=== PATIENT | male | born 1955 | race African-American/Black ===

== ENCOUNTER 2018-06-08 11:21 | Inpatient (IN) ==
--- NOTE | 2018-06-08 10:01 | MH ---
cc: Herbie Genao MD,Adis Belle MD DATE OF ADMISSION: 06/08/2018 CHIEF COMPLAINT: Adenocarcinoma of sigmoid colon. HISTORY OF PRESENT ILLNESS: This patient originally had a colonoscopy by Dr. Clemente on 09/12/2017. At that time, there were 2 polyps from 12-25 mm in size in the sigmoid colon. Both polyps were removed with snare polypectomy and the biopsy was returned approximately [address] Clemente showing adenocarcinoma. The pathology report states that it was a 1.5 cm specimen, and Dr. Clemente requested lymphovascular tumor invasion study as well as endothelial stains, CD31 and CD34, and no lymphovascular invasion was found in the area of invasive adenocarcinoma. The patient was referred to General Surgery, specifically Dr. Bruce Coats, and was recommended to have a sigmoid colectomy. The patient underwent CT scanning of the abdomen, pelvis and chest on 09/29/2017, which was basically unremarkable except for some pulmonary nodules and therefore he underwent a PET CT scan on 10/03/2017 that was unremarkable. Approximately 2-1/2 months later, on 11/24/2017, the patient was seen by me for a second opinion, and I spoke with Dr. Clemente on the phone, who felt that the lesion was definitely in the lower sigmoid colon. At the time of my examination, it was 2 months since the lesion was removed, and I decided to repeat his colonoscopy to make sure that I got a good look at his rectosigmoid region to see if there was any residual polyp present. At that time, his CEA on 09/23/2017 was normal at 1.6. A colonoscopy was completed by me on 12/01/2017 and at that time, I felt that I saw a small 2 mm scar at 19-20 cm from the anal verge in the lower sigmoid region. That scar was tattooed and biopsied and only showed focal glandular hyperplasia with no adenomatous glands and no dysplasia or malignancy. For this reason, we decided together to watch and wait on this lesion and follow him. The lesion was felt to be fully removed at the time of the colonoscopy and also the second colonoscopy that I did show no lesions and it was a much better prep and Dr. Clemente's colonoscopy. I saw the patient back approximately 3 months after his colonoscopy on 03/02/2018 and at that time, a flexible sigmoidoscopy was done. The prep at that time was not good. I could see the area of the tattoo that I left back in 11/2017, but I could not see any recurrence at this area. We then obtained a CEA on him and it came back elevated on 03/02/2018 at 15.2. This was repeated on 03/23/2018, mildly decreased to 13.2, but was concerning. I saw the patient in the office once again and went over all of these results with him and told him my concerns of residual or metastatic or even recurrent carcinoma. He underwent a repeat PET CT scan on 04/04/2018 showing no definite uptake in the bowel or the chest or anywhere, such as a liver or retroperitoneal node chains. Because of this, I had a discussion with the patient and he underwent flexible sigmoidoscopy examination after prep and under sedation and right at my tattooed area, at about 20 cm from the anal verge, was a small 8 mm pedunculated polypoid lesion. This lesion was biopsied and it showed colonic mucosa with detached glands with high-grade dysplasia, could not exclude underlying adenocarcinoma. Because of this, on 05/04/2018, I talked to the patient once again about surgery, and he consented to surgery. I recommended a full sigmoid colectomy with a colorectal anastomosis with a full mesenteric excision, indicating that the anastomosis would be in the mid to upper rectum. I explained all od the risks, benefits, and alternatives to the patient and felt that it was in his best interest to have a colectomy. PAST MEDICAL HISTORY: Otherwise negative. FAMILY HISTORY: Otherwise negative. SOCIAL HISTORY: Otherwise negative. REVIEW OF SYSTEMS: Otherwise negative. MEDICATIONS: Amlodipine 10 mg p.o. daily. PHYSICAL EXAMINATION: GENERAL: Well-developed, well-nourished male, in no acute distress. SKIN: Warm and dry. HEENT: Extraocular muscles intact. NECK: Supple. CHEST: Clear. HEART: S1, S2 is heard. No murmurs or gallops. ABDOMEN: Soft, nontender. No masses. RECTAL: Normal. EXTREMITIES: Range of motion within normal limits. NEUROLOGIC: Grossly normal. IMPRESSION AND RECOMMENDATIONS: Probable adenocarcinoma at a polypectomy site in the low sigmoid at about 19-20 cm, requiring a sigmoid colectomy with a low anterior resection with anastomosis in the mid to upper rectum. Again, all of the risks, benefits and alternatives were explained to the patient and we will proceed with surgery. MD MICHAEL Franco/LIZETTE , 09:38 AM , 10:00 AM
[2018-06-08] MEDS ORDERED: Neostigmine Inj 5 MG/5 ML Syringe IV.PUSH ONE (12:00)
[2018-06-08] MEDS ORDERED: Esmolol Bolus Inj 100 MG/10 ML Vial IV.PUSH ONE (12:00)
[2018-06-08] MEDS ORDERED: Glycopyrrolate Inj 1 MG/5 ML Syringe IV.PUSH ONE (12:00)
[2018-06-08] MEDS ORDERED: Phenylephrine/NS 1000 MCG/10ML Syringe IV.PUSH ONE (12:00)
[2018-06-08] MEDS ORDERED: Lidocaine PF 1% Inj 5 ML Syringe INFILTRATN ONE (12:00)
[2018-06-08] MEDS ORDERED: Chlorhexidine Gluconate 2% 1 Pack (2 Cloths) TOPICAL SCH (12:30)
[2018-06-08] MEDS ORDERED: Metoprolol Tartrate 25 MG Tablet PO SCH (12:30)
[2018-06-08] MEDS ORDERED: Dextrose 5%/NaCl 0.9% Inj 1,000 ML IV.SIG SCH (12:45)
[2018-06-08] MEDS ORDERED: Sodium Chlor 0.9% Inj 500 ML IV.SIG SCH (13:00)
[2018-06-08] MEDS ORDERED: Potassium Chlor 20 mEq Premix 20 MEQ/100 ML PIGGYBACK IV.SIG PRN ×2 (15:40→15:43)
[2018-06-08] MEDS ORDERED: Potassium Chlor 40 mEq Premix 40 MEQ/100 ML PIGGYBACK IV.SIG PRN ×2 (15:40→15:43)
[2018-06-08] MEDS ORDERED: Acetaminophen 325 MG Tablet PO PRN (15:46)
[2018-06-08] MEDS ORDERED: Zolpidem Tartrate 5 MG Tablet PO PRN (15:46)
[2018-06-08] MEDS ORDERED: *morphine SULFATE 10 MG/ML PERIprocedure ONLY ONE ×2 (15:59→16:37)
[2018-06-08] MEDS ORDERED: fentaNYL Citrate Inj 100 MCG/2 ML Ampul ONE ×2 (16:01→16:37)
[2018-06-08] MEDS ORDERED: Morphine Inj 30 MG/30 ML PCA.VIAL PCA ONE (16:24)
[2018-06-08] MEDS ORDERED: Naloxone Inj 0.4 MG/ML Vial IV.PUSH PRN (17:14)
[2018-06-08 17:25] LABS: Baso % (Auto) 0.1 % (0.0-2.0); Hemoglobin 14.2 gm/dL (13.0-17.0); Lymph # (Auto) 0.9 th/mm3 (1.0-4.8); Lymph % (Auto) 6.5 % (9.0-44.0); Mean Corpuscular HGB Conc 31.6 % (32.0-36.0); Mean Corpuscular Hemoglobin 25.9 pg (27.0-34.0); Mean Corpuscular Volume 81.7 fL (80.0-100.0); Mean Platelet Volume 7.8 fL (7.0-11.0); Mono # (Auto) 0.3 th/mm3 (0.0-0.9); Mono % (Auto) 2.1 % (0.0-8.0); Neut # (Auto) 13.3 th/mm3 (1.8-7.7); Neut % (Auto) 91.3 % (16.0-70.0); Platelet Count 204 th/mm3 (150-450); Red Blood Count 5.51 mil/mm3 (4.50-5.90); Red Cell Distribution Width 15.5 % (11.6-17.2); White Blood Count 14.5 th/mm3 (4.0-11.0)
[2018-06-08 17:42] LABS: Carbon Dioxide 23.7 meq/L (21.0-32.0); Potassium 3.6 meq/L (3.5-5.1)
[2018-06-08] MEDS: ceFAZolin 2 GM Premix Inj 2 GM/50 ML PIGGYBACK IV.SIG SCH (18:05)
--- NOTE | 2018-06-08 19:51 | MP ---
cc: Herbie Genao MD,Adis Belle MD DATE OF OPERATION: 06/08/2018 PREOPERATIVE DIAGNOSIS: Adenocarcinoma of the sigmoid colon. POSTOPERATIVE DIAGNOSIS: Adenocarcinoma of the sigmoid colon. PROCEDURE PERFORMED: Sigmoid colectomy, low anterior resection. ANESTHESIA: General endotracheal. SURGEON: Herbie Genao MD MANAGER OF MARKETING: Elmer Briones MD ESTIMATED BLOOD LOSS: 200 mL OPERATING TIME: One hour and 30 minutes. OPERATIVE FINDINGS: This patient originally had a colonoscopy done by Chyna on 09/12/2017. At that time, there were 2 polyps seen, 12-25 mm in size in the sigmoid colon. Both polyps were removed with snare polypectomy and biopsy was returned approximately 10 days later showing adenocarcinoma. The pathology report stated that it was a 1.5 cm specimen and lymphovascular tumor invasion study was done, as well as endothelial stains and no lymphovascular invasion was found in the area of invasive adenocarcinoma. The patient was referred to General Surgery initially, but wished a second opinion. The patient underwent CT scanning of the abdomen, the pelvis and the chest on 09/29/2017, which was basically unremarkable except for some pulmonary nodules and, therefore, he underwent a PET/CT scan on 10/03/2017 that was also unremarkable. Approximately 2-1/2 months later, on 11/24/2017, the patient was seen by me for a second opinion. I spoke with Dr. Clemente on the phone, who felt that the lesion was definitely in the lower sigmoid colon. At the time of my examination, it was 2 months since the lesion was removed and I decided to repeat his colonoscopy to make sure that I got a good look at the area to see if there was any residual polyp or carcinoma present. That colonoscopy was done on 12/01/2017 and, at that time, I saw a 2 mm scar at 19-20 cm from the anal verge, in the lower sigmoid colon, that I tattooed and biopsied, showing only focal glandular hyperplasia with no adenomatous glands, dysplasia or malignancy. A CEA level done on 09/23/2017 was normal at 1.6. For this reason, we decided together to watch and wait on this lesion and follow him, as we had no evidence of exactly where the lesion definitely was, although it was felt to be in that lower sigmoid where I saw the 2 mm scar. I followed the patient and on 03/02, approximately 3 months later, I saw the patient again in the office and did a flexible sigmoidoscopy showing only the tattoo, although the prep was not good at the time. I obtained another CEA on him at that time, approximately 6 months after he was originally diagnosed and the CEA on 03/02/2018 was elevated to 15.2. It was repeated about 2 weeks later and was 13.2. Because of this, I saw the patient in the office once again and recommended a complete metastatic workup, as well as a repeat sigmoidoscopy only under sedation with prep. The PET/CT scan was done on 04/04/2018, showing no definite uptake in the bowel or the chest or anywhere, such as liver or retroperitoneal node change. Because of this, the sigmoidoscopy examination was done and at about 20 cm from the anal verge at the area of the tattoo, there was a small 8 mm pedunculated polypoid lesion that was firm and was biopsied. It showed high-grade dysplasia and underlying carcinoma could not be excluded. Because of this, on 05/04/2018, I talked to the patient once again about having surgery and he consented to the surgery. I recommended a sigmoid colectomy with a colorectal anastomosis. At surgery, exploration of the abdominal cavity revealed that the liver was palpably normal, as was the gallbladder, the remainder of the small bowel and stomach as well as the remainder of the colon. The tattoo was seen at about 20 cm, just about 5 cm above the upper rectum and there was a nodular area present there in the bowel wall. It was not penetrating the colon. Of note, near the area of the inferior mesenteric artery origin, there was a small serosal lesion approximately 3 mm in diameter. It was mildly firm and it was excised and sent for permanent biopsy to determine if it was a peritoneal metastasis. Also, just distal to the inferior mesenteric artery origin was a 2 cm enlarged, firm lymph node that was suspicious for metastatic lymphadenopathy. This is the only palpable lymph node. The only other possibly abnormal area is deep in his cul-de-sac, well below his lesion in his sigmoid colon. He had cul-de-sac serosa on the left and the right that appeared mildly nodular, although not firm like metastatic adenocarcinoma, but it was irregular and almost frond-like and, therefore, was excised. Deep in the cul-de-sac was another small area and this area was fulgurated. A sigmoid colectomy was done with a colorectal anastomosis to the upper portion of the rectum. OPERATIVE TECHNIQUE: The patient was placed on the table in the supine position. After adequate general endotracheal anesthesia, the legs were placed in the perineal lithotomy position and the abdomen and perineum were prepped and draped in usual manner. Transverse infraumbilical skin incision was made and carried down through subcutaneous tissue and the rectus muscles and the peritoneal cavity was entered with the above-mentioned findings. Our attention was turned to the sigmoid colon. It was mobilized along its peritoneal reflection and the descending colon was likewise mobilized up to, but not including, the splenic flexure. The left ureter and testicular vessels were identified and protected at all times. Next, our attention was turned to the inferior mesenteric artery and it was doubly clamped, cut and doubly ligated with 0 Vicryl ligature. Near that area was a 3 mm flat area on the serosa of the mesentery that was excised and sent for permanent section as described above. The retrorectal space was entered and the dissection was taken down posteriorly and laterally to protect his nerves at all times. The lateral pelvic peritoneum was incised bilaterally and the dissection was continued down posteriorly. Deep in the cul-de-sac, well below the area of the resection was this irregularity of his cul-de-sac mucosa on the left and the right, which was removed and sent for permanent section biopsy. Deep in the cul-de-sac were several other frond-like areas that were soft, but also somewhat irregular and these were fulgurated. No other suspicious areas were seen and no definite metastatic disease was found. Just below the inferior mesenteric artery division was the large firm lymph node, also described above and this is sent with the specimen. Once the rectum was mobilized, point in the upper rectum, just below the rectosigmoid junction was chosen for division and the upper portion of the mesorectum was divided with electrocautery and was clamped, cut and ligated as well and the upper rectum was cleared of fat and mesorectum. Pursestring stapling device was used and the rectum was divided. Next, our attention was turned to the sigmoid colon above and a point for division was chosen and the mesentery of the sigmoid colon was clamped, cut and ligated and the sigmoid colon was cleared. A pursestring stapling device was used and the bowel was divided. The anvil of the Ethicon 33 EEA was placed in the proximal bowel and the pursestring was tied. Dr. Briones then went below and placed the EEA instrument transanally and the distal pursestring was tied and the instrument was connected, closed and fired, creating the anastomosis. The anastomosis was under no tension. The blood supply was excellent. Dr. Briones then did proctosigmoidoscopy examination, insufflating air into the rectum with saline solution in the pelvis and no air leaks were identified. The pelvis was irrigated thoroughly with 2 liters of saline solution, aspirated dry and hemostasis was maintained throughout with electrocautery and ligature. Once we ensured adequate hemostasis, the bowels were replaced in the abdominal cavity in an driver guide manner and the omentum and the transverse colon was laid over the small bowel. The abdominal cavity was then closed in layers using a double-stranded #1 PDS for the posterior rectus sheath and then the muscle and subcutaneous layer were irrigated thoroughly with saline solution using a liter and then the anterior rectus sheath was closed with a double stranded #1 PDS as well. Subcutaneous tissue was irrigated with a liter of saline solution and then the skin was closed with running 3-0 Vicryl subcuticular suture and a dressing was applied. Sponge, needle and instrument counts were reported as correct. The estimated blood loss was 200 mL. Operating time was 1 hour and 30 minutes. The patient tolerated the procedure well and left the operating room in good condition. MD MICHAEL Franco/SHANEL , 06:47 PM , 07:49 PM
[2018-06-08] MEDS: KCL 20 mEq/D5W/LR Inj 1,000 ML IV.CONT SCH (21:21)
[2018-06-09] MEDS: ceFAZolin 2 GM Premix Inj 2 GM/50 ML PIGGYBACK IV.SIG SCH ×2 (04:00→11:34)
[2018-06-09 05:29] LABS: Baso % (Auto) 0.1 % (0.0-2.0); Hematocrit 41.6 % (39.0-51.0); Hemoglobin 13.6 gm/dL (13.0-17.0); Lymph # (Auto) 1.1 th/mm3 (1.0-4.8); Lymph % (Auto) 8.7 % (9.0-44.0); Mean Corpuscular HGB Conc 32.7 % (32.0-36.0); Mean Corpuscular Hemoglobin 26.2 pg (27.0-34.0); Mean Corpuscular Volume 80.1 fL (80.0-100.0); Neut # (Auto) 10.7 th/mm3 (1.8-7.7); Neut % (Auto) 83.2 % (16.0-70.0); Platelet Count 201 th/mm3 (150-450); Red Blood Count 5.19 mil/mm3 (4.50-5.90); Red Cell Distribution Width 15.1 % (11.6-17.2); White Blood Count 12.9 th/mm3 (4.0-11.0)
[2018-06-09 05:42] LABS: Calcium 8.2 mg/dL (8.5-10.1); Carbon Dioxide 25.9 meq/L (21.0-32.0); Potassium 3.8 meq/L (3.5-5.1)
[2018-06-09] MEDS: Morphine Inj 30 MG/30 ML PCA.VIAL PCA PRN (08:55)
[2018-06-09] MEDS: amLODIPine 10 MG Tablet PO SCH (09:01)
[2018-06-09] MEDS: Pantoprazole Inj 40 MG Vial IV.PUSH SCH (09:01)
--- NOTE | 2018-06-09 16:26 | P.PNCS ---
Subjective Interval history: No N or V. No BMs. Tolerating CLD Objective Vital Signs/Intake & Output: Vital Signs 06/08/18 16:30 06/08/18 16:45 06/08/18 17:00 Temperature Pulse Rate 74 72 74 Respiratory Rate 16 16 16 Blood Pressure 152/82 H 149/83 H 143/79 H Pulse Oximetry 99 98 98 06/08/18 17:30 06/08/18 20:00 06/09/18 00:00 Temperature 98.1 F 98.5 F Pulse Rate 78 86 88 Respiratory Rate 16 16 16 Blood Pressure 146/79 H 162/98 H 150/95 H Pulse Oximetry 98 97 97 06/09/18 04:00 06/09/18 05:30 06/09/18 07:00 Temperature 98.5 F 98.5 F Pulse Rate 86 86 78 Respiratory Rate 16 16 Blood Pressure 148/91 H 148/91 H Pulse Oximetry 96 96 06/09/18 08:00 06/09/18 09:00 06/09/18 09:55 Temperature 99.4 F Pulse Rate 74 80 Respiratory Rate 18 Blood Pressure 149/86 H Pulse Oximetry 95 06/09/18 10:00 06/09/18 11:00 06/09/18 12:00 Temperature 98.6 F Pulse Rate 68 65 74 Respiratory Rate 20 Blood Pressure 142/97 H Pulse Oximetry 97 06/09/18 13:00 06/09/18 14:00 06/09/18 15:00 Temperature Pulse Rate 72 78 81 Respiratory Rate Blood Pressure Pulse Oximetry Intake & Output 06/08/18 06/09/18 06/09/18 18:59 06:59 18:59 Intake Total 50 / 50 100 / 100 540 / 540 Output Total 620 / 620 100 / 100 2950 / 2950 Balance -570 / -570 0 / 0 -2410 / -2410 Weight 96.7 kg 96.6 kg Intake: IV 50 / 50 100 / 100 300 / 300 Ancef 2 GM Premix Inj 2 gm In 50 / 50 100 / 100 50 ml @ 100 mls/hr IV.SIG Q8H KARI Rx#:[id number] Flagyl 500 MG Inj 100 ML @ 200 100 / 100 200 / 200 mls/hr IV.SIG Q8H KARI Rx#: [id number] Oral 0 / 0 240 / 240 Output: Urine 350 / 350 Estimated Blood Loss 200 / 200 Urine Amount (Catheter) 50 / 50 2950 / 2950 Indwelling Urethral Catheter 50 / 50 2950 / 2950 Wound Drainage 70 / 70 50 / 50 Right Lower Abdomen 70 / 70 50 / 50 Other: Weight On Admission 96.7 kg Result Diagrams: 06/09/18 04:27 06/09/18 04:27 Laboratory Results: Laboratory Results - last 24 hr 06/08/18 06/08/18 06/09/18 16:45 16:45 04:27 WBC 14.5 H 12.9 H RBC 5.51 5.19 Hgb 14.2 13.6 Hct 45.0 41.6 MCV 81.7 80.1 MCH 25.9 L 26.2 L MCHC 31.6 L 32.7 RDW 15.5 15.1 Plt Count 204 201 MPV 7.8 8.0 Neut % (Auto) 91.3 H 83.2 H Lymph % (Auto) 6.5 L 8.7 L [place] % (Auto) 2.1 8.0 Eos % (Auto) 0.0 0.0 Baso % (Auto) 0.1 0.1 Neut # (Auto) 13.3 H 10.7 H Lymph # (Auto) 0.9 L 1.1 [place] # (Auto) 0.3 1.0 H Eos # (Auto) 0.0 0.0 Baso # (Auto) 0.0 0.0 WBC Differential . . Differential Comment Auto diff final Auto diff final Sodium 142 Potassium 3.6 Chloride 108 H Carbon Dioxide 23.7 Anion Gap 10 BUN 12 Creatinine 1.23 Estimated GFR 73 L Random Glucose 168 H Calcium 8.0 L 06/09/18 04:27 WBC RBC Hgb Hct MCV MCH MCHC RDW Plt Count MPV Neut % (Auto) Lymph % (Auto) [place] % (Auto) Eos % (Auto) Baso % (Auto) Neut # (Auto) Lymph # (Auto) [place] # (Auto) Eos # (Auto) Baso # (Auto) WBC Differential Differential Comment Sodium 141 Potassium 3.8 Chloride 106 Carbon Dioxide 25.9 Anion Gap 9 BUN 9 Creatinine 1.28 Estimated GFR 69 L Random Glucose 130 H Calcium 8.2 L Medications: Active Medications Acetaminophen (Tylenol) 650 mg PO Q4H PRN PRN Reason: FEVER > 101 F Hydrocodone Bitart/Acetaminophen ([place] 5/325) 2 tab PO Q4H PRN PRN Reason: PAIN SCALE 5 TO 10 Hydrocodone Bitart/Acetaminophen ([place] 5/325) 1 tab PO Q4H PRN PRN Reason: PAIN SCALE 1 TO 4 Last Admin: 06/09/18 03:59 Dose: 1 tab Alvimopan (Entereg) 12 mg PO [employer] [facility] Stop: 06/12/18 12:59 Last Admin: 06/09/18 09:01 Dose: 12 mg Alvimopan (Entereg) 12 mg PO BID [facility]I Stop: 06/15/18 21:01 Last Admin: 06/09/18 09:00 Dose: 12 mg Amlodipine Besylate (Norvasc) 10 mg PO DAILY [facility] Last Admin: 06/09/18 09:01 Dose: 10 mg Benzocaine/Menthol (Chloraseptic Sore Throat Lozenge) 1 lozenge BUCCAL PRN PRN PRN Reason: SORE THROAT Chlorhexidine Gluconate (Chlorhexidine 2% Cloth) 3 pack TOPICAL [employer] [facility] Stop: 06/11/18 12:30 Enalaprilat (Vasotec Inj) 1.25 mg IV.PUSH Q4H PRN PRN Reason: SBP > 160 mmHg Furosemide (Lasix Inj) 20 mg IV.PUSH Q12HR [facility] Last Admin: 06/09/18 09:00 Dose: 20 mg Lactated Ringer's (Lr 1000 Ml Inj) 1,000 mls @ 30 mls/hr IV.SIG .Q24H [facility] Stop: 06/11/18 12:30 Last Admin: 06/09/18 14:33 Dose: Not Given Sodium Chloride (Ns Inj) 500 mls @ 30 mls/hr IV.SIG .Q10H [facility] Stop: 06/11/18 12:30 Cefazolin Sodium 1,000 mg/ (Sodium Chloride) 100 mls @ 200 mls/hr IV.SIG [employer] [facility] Stop: 06/11/18 12:59 Metronidazole/Sodium Chloride (Flagyl 500 Mg Inj) 100 mls @ 0 mls/hr IV.SIG [employer] [facility] Stop: 06/12/18 12:59 Dextrose/Sodium Chloride (D5w/Normal Saline Inj) 1,000 mls @ 125 mls/hr IV.SIG .Q8H [facility] Last Admin: 06/09/18 11:02 Dose: Not Given Potassium Cl/Dextrose/Lact Ringer's (D5w/Lr + Kcl 20 Meq Inj) 1,000 mls @ 0 mls /hr IV.CONT .Q0M [facility]; Protocol Last Admin: 06/08/18 21:21 Dose: 200 mls/hr Potassium Chloride (Kcl 20 Meq Premix Inj) 20 meq in 100 mls @ 50 mls/hr IV.SIG UNSCH PRN PRN Reason: for K+ level 3.0-3.5 Potassium Chloride (Kcl 40 Meq Premix Inj) 40 meq in 100 mls @ 25 mls/hr IV.SIG UNSCH PRN PRN Reason: for K= level < 3.0 Potassium Chloride (Kcl 40 Meq Premix Inj) 40 meq in 100 mls @ 25 mls/hr IV.SIG UNSCH PRN PRN Reason: for K= level < 3.0 Potassium Chloride (Kcl 20 Meq Premix Inj) 20 meq in 100 mls @ 50 mls/hr IV.SIG UNSCH PRN PRN Reason: for K+ level 3.0-3.5 Morphine Sulfate (Morphine Inj) 30 mg in 30 mls @ 0 mls/hr [employer] UNSCH PRN PRN Reason: per [employer] parameters Last Admin: 06/09/18 08:55 Dose: 0 mls/hr Ketorolac Tromethamine (Toradol Inj) 15 mg IV.PUSH Q6H PRN PRN Reason: BREAKTHROUGH PAIN Stop: 06/11/18 15:45 Metoclopramide HCl (Reglan Inj) 10 mg IV.PUSH Q6HR [facility]; Protocol Last Admin: 06/09/18 11:34 Dose: 10 mg Metoprolol Tartrate (Lopressor) 25 mg PO [employer] [facility] Stop: 06/11/18 12:30 Naloxone HCl (Narcan Inj) 0.4 mg IV.PUSH PRN PRN PRN Reason: Resp rate < 10 Pantoprazole Sodium (Protonix Inj) 40 mg IV.PUSH DAILY [facility] Last Admin: 06/09/18 09:01 Dose: 40 mg Povidone Iodine (Betadine 5% Antisepsis Kit) 1 applicatio EACH NARE [employer] [facility] Stop: 06/11/18 12:30 Sodium Chloride (Ns Flush) 2 ml IV.FLUSH BID [facility] Last Admin: 06/09/18 10:59 Dose: Not Given Sodium Chloride (Ns Flush) 2 ml IV.FLUSH BID [facility]I Last Admin: 06/09/18 09:00 Dose: 2 ml Sodium Chloride (Ns Flush) 2 ml IV.FLUSH PRN PRN PRN Reason: FLUSH AFTER USING IV ACCESS Sodium Chloride (Ns Flush) 2 ml IV.FLUSH PRN PRN PRN Reason: FLUSH AFTER USING IV ACCESS Zolpidem Tartrate (Ambien) 5 mg PO HS PRN PRN Reason: INSOMNIA Objective Remarks: VS-S Abd: soft,dressing dry Assessment and Plan - Plan Stable POD#1. Transfer to [address] [place] [address]
[2018-06-09] MEDS: KCL 20 mEq/D5W/LR Inj 1,000 ML IV.CONT SCH (21:21)
[2018-06-10] MEDS: KCL 20 mEq/D5W/LR Inj 1,000 ML IV.CONT SCH ×2 (03:56→09:30)
[2018-06-10] MEDS: Morphine Inj 30 MG/30 ML PCA.VIAL PCA PRN ×2 (04:57→19:40)
[2018-06-10 06:05] LABS: Baso % (Auto) 0.3 % (0.0-2.0); Eos # (Auto) 0.1 th/mm3 (0.0-0.4); Eos % (Auto) 0.5 % (0.0-4.0); Hematocrit 41.7 % (39.0-51.0); Hemoglobin 13.5 gm/dL (13.0-17.0); Lymph # (Auto) 1.4 th/mm3 (1.0-4.8); Lymph % (Auto) 13.5 % (9.0-44.0); Mean Corpuscular HGB Conc 32.5 % (32.0-36.0); Mean Corpuscular Hemoglobin 26.4 pg (27.0-34.0); Mean Corpuscular Volume 81.3 fL (80.0-100.0); Mean Platelet Volume 8.2 fL (7.0-11.0); Mono # (Auto) 1.1 th/mm3 (0.0-0.9); Mono % (Auto) 10.7 % (0.0-8.0); Neut # (Auto) 7.6 th/mm3 (1.8-7.7); Platelet Count 197 th/mm3 (150-450); Red Blood Count 5.13 mil/mm3 (4.50-5.90); Red Cell Distribution Width 15.4 % (11.6-17.2); White Blood Count 10.1 th/mm3 (4.0-11.0)
[2018-06-10 07:26] LABS: Calcium 8.2 mg/dL (8.5-10.1); Carbon Dioxide 25.5 meq/L (21.0-32.0); Potassium 4.2 meq/L (3.5-5.1)
[2018-06-10] MEDS: amLODIPine 10 MG Tablet PO SCH (09:44)
[2018-06-10] MEDS: Pantoprazole Inj 40 MG Vial IV.PUSH SCH (09:45)
[2018-06-10] MEDS: Ketorolac Inj 30 MG/ML (IVP) Vial IV.PUSH PRN ×2 (09:45→23:28)
--- NOTE | 2018-06-10 10:44 | P.PNCS ---
Subjective Interval history: No N or V. No BMs Objective Vital Signs/Intake & Output: Vital Signs 06/09/18 11:00 06/09/18 12:00 06/09/18 13:00 Temperature 98.6 F Pulse Rate 65 74 72 Respiratory Rate 20 Blood Pressure 142/97 H Pulse Oximetry 97 06/09/18 14:00 06/09/18 15:00 06/09/18 16:00 Temperature Pulse Rate 78 81 82 Respiratory Rate Blood Pressure Pulse Oximetry 06/09/18 16:24 06/09/18 17:00 06/09/18 18:00 Temperature 98.8 F Pulse Rate 84 72 74 Respiratory Rate 18 Blood Pressure 136/91 H Pulse Oximetry 94 L 06/09/18 19:00 06/09/18 20:00 06/09/18 21:00 Temperature 101.3 F H 99.8 F H Pulse Rate 77 90 92 H Respiratory Rate 16 Blood Pressure 141/94 H Pulse Oximetry 97 06/09/18 22:00 06/09/18 23:00 06/10/18 00:00 Temperature 99.3 F Pulse Rate 100 H 88 86 Respiratory Rate 16 Blood Pressure 140/94 H Pulse Oximetry 95 06/10/18 01:00 06/10/18 02:07 06/10/18 03:00 Temperature Pulse Rate 84 88 83 Respiratory Rate Blood Pressure Pulse Oximetry 06/10/18 04:00 06/10/18 05:00 06/10/18 06:00 Temperature 99.4 F Pulse Rate 90 86 84 Respiratory Rate 16 Blood Pressure 128/86 Pulse Oximetry 97 06/10/18 08:00 Temperature 98.5 F Pulse Rate 93 H Respiratory Rate 20 Blood Pressure 131/95 H Pulse Oximetry 96 Intake & Output 06/09/18 06/10/18 06/10/18 18:59 06:59 18:59 Intake Total 1860 / 1860 Output Total 4000 / 4000 1300 / 1300 Balance -2140 / -2140 -1300 / -1300 Weight 96.6 kg Intake: IV 300 / 300 Ancef 2 GM Premix Inj 2 gm In 100 / 100 50 ml @ 100 mls/hr IV.SIG Q8H [facility] Rx#:[id number] Flagyl 500 MG Inj 100 ML @ 200 200 / 200 mls/hr IV.SIG Q8H [facility] Rx#: [id number] Oral 1560 / 1560 Output: Urine Amount (Catheter) 4000 / 4000 1300 / 1300 Indwelling Urethral Catheter 4000 / 4000 1300 / 1300 Other: Date of Last Bowel Movement 06/07/18 # Bowel Movements 0 0 Result Diagrams: 06/10/18 04:02 06/10/18 04:02 Laboratory Results: Laboratory Results - last 24 hr 06/10/18 06/10/18 04:02 04:02 WBC 10.1 RBC 5.13 Hgb 13.5 Hct 41.7 MCV 81.3 MCH 26.4 L MCHC 32.5 RDW 15.4 Plt Count 197 MPV 8.2 Neut % (Auto) 75.0 H Lymph % (Auto) 13.5 [place] % (Auto) 10.7 H Eos % (Auto) 0.5 Baso % (Auto) 0.3 Neut # (Auto) 7.6 Lymph # (Auto) 1.4 [place] # (Auto) 1.1 H Eos # (Auto) 0.1 Baso # (Auto) 0.0 WBC Differential . Differential Comment Auto diff final Sodium 140 Potassium 4.2 Chloride 104 Carbon Dioxide 25.5 Anion Gap 11 BUN 8 Creatinine 1.31 H Estimated GFR 68 L Random Glucose 112 H Calcium 8.2 L Medications: Active Medications Acetaminophen (Tylenol) 650 mg PO Q4H PRN PRN Reason: FEVER > 101 F Last Admin: 06/09/18 20:07 Dose: 650 mg Hydrocodone Bitart/Acetaminophen ([place] 5/325) 2 tab PO Q4H PRN PRN Reason: PAIN SCALE 5 TO 10 Hydrocodone Bitart/Acetaminophen ([place] 5/325) 1 tab PO Q4H PRN PRN Reason: PAIN SCALE 1 TO 4 Last Admin: 06/09/18 03:59 Dose: 1 tab Alvimopan (Entereg) 12 mg PO [employer] REPRESENTATIVE [facility] Stop: 06/12/18 12:59 Last Admin: 06/09/18 09:01 Dose: 12 mg Alvimopan (Entereg) 12 mg PO BID [facility] Stop: 06/15/18 21:01 Last Admin: 06/10/18 09:45 Dose: 12 mg Amlodipine Besylate (Norvasc) 10 mg PO DAILY [facility] Last Admin: 06/10/18 09:44 Dose: 10 mg Benzocaine/Menthol (Chloraseptic Sore Throat Lozenge) 1 lozenge BUCCAL PRN PRN PRN Reason: SORE THROAT Chlorhexidine Gluconate (Chlorhexidine 2% Cloth) 3 pack TOPICAL BUSINESS REPRESENTATIVE [facility] Stop: 06/11/18 12:30 Enalaprilat (Vasotec Inj) 1.25 mg IV.PUSH Q4H PRN PRN Reason: SBP > 160 mmHg Furosemide (Lasix Inj) 20 mg IV.PUSH Q12HR [facility] Last Admin: 06/10/18 09:45 Dose: 20 mg Cefazolin Sodium 1,000 mg/ (Sodium Chloride) 100 mls @ 200 mls/hr IV.SIG BUSINESS REPRESENTATIVE [facility] Stop: 06/11/18 12:59 Metronidazole/Sodium Chloride (Flagyl 500 Mg Inj) 100 mls @ 0 mls/hr IV.SIG BUSINESS REPRESENTATIVE [facility] Stop: 06/12/18 12:59 Potassium Chloride (Kcl 20 Meq Premix Inj) 20 meq in 100 mls @ 50 mls/hr IV.SIG UNSCH PRN PRN Reason: for K+ level 3.0-3.5 Potassium Chloride (Kcl 40 Meq Premix Inj) 40 meq in 100 mls @ 25 mls/hr IV.SIG UNSCH PRN PRN Reason: for K= level < 3.0 Potassium Chloride (Kcl 40 Meq Premix Inj) 40 meq in 100 mls @ 25 mls/hr IV.SIG UNSCH PRN PRN Reason: for K= level < 3.0 Potassium Chloride (Kcl 20 Meq Premix Inj) 20 meq in 100 mls @ 50 mls/hr IV.SIG UNSCH PRN PRN Reason: for K+ level 3.0-3.5 Potassium Cl/Dextrose/Lact Ringer's (D5w/Lr + Kcl 20 Meq Inj) 1,000 mls @ 50 mls/hr IV.CONT .Q20H [facility] Ketorolac Tromethamine (Toradol Inj) 15 mg IV.PUSH Q6H PRN PRN Reason: BREAKTHROUGH PAIN Stop: 06/11/18 15:45 Last Admin: 06/10/18 09:45 Dose: 15 mg Metoclopramide HCl (Reglan Inj) 10 mg IV.PUSH Q6HR [facility]; Protocol Last Admin: 06/10/18 05:01 Dose: 10 mg Metoprolol Tartrate (Lopressor) 25 mg PO BUSINESS REPRESENTATIVE [facility] Stop: 06/11/18 12:30 Pantoprazole Sodium (Protonix Inj) 40 mg IV.PUSH DAILY [facility] Last Admin: 06/10/18 09:45 Dose: 40 mg Povidone Iodine (Betadine 5% Antisepsis Kit) 1 applicatio EACH NARE BUSINESS REPRESENTATIVE [facility] Stop: 06/11/18 12:30 Sodium Chloride (Ns Flush) 2 ml IV.FLUSH BID [facility] Last Admin: 06/09/18 21:16 Dose: 2 ml Sodium Chloride (Ns Flush) 2 ml IV.FLUSH BID [facility] Last Admin: 06/09/18 21:19 Dose: Not Given Sodium Chloride (Ns Flush) 2 ml IV.FLUSH PRN PRN PRN Reason: FLUSH AFTER USING IV ACCESS Sodium Chloride (Ns Flush) 2 ml IV.FLUSH PRN PRN PRN Reason: FLUSH AFTER USING IV ACCESS Zolpidem Tartrate (Ambien) 5 mg PO HS PRN PRN Reason: INSOMNIA Objective Remarks: VS-S Abd: sft,mild distention Assessment and Plan - Plan Stable POD#2. Transfer to [address] [place] [address] Ambulate FLD Regular diet in AM Decrease IVs
[2018-06-11] MEDS: KCL 20 mEq/D5W/LR Inj 1,000 ML IV.CONT SCH (05:27)
[2018-06-11] MEDS: Pantoprazole Inj 40 MG Vial IV.PUSH SCH (09:30)
[2018-06-11] MEDS: amLODIPine 10 MG Tablet PO SCH (09:31)
--- NOTE | 2018-06-11 10:13 | P.PNCS ---
Subjective Interval history: Doing well. Stooling. Wants to go home. Objective Vital Signs/Intake & Output: Vital Signs 06/10/18 11:00 06/10/18 12:00 06/10/18 16:00 Temperature 97.9 F 98.4 F Pulse Rate 85 94 H 89 Respiratory Rate 18 20 Blood Pressure 114/86 135/97 H Pulse Oximetry 97 94 L 06/10/18 19:00 06/10/18 20:00 06/10/18 21:00 Temperature 99.4 F Pulse Rate 90 80 94 H Respiratory Rate 16 Blood Pressure 114/96 H Pulse Oximetry 94 L 06/10/18 22:00 06/10/18 23:00 06/11/18 00:00 Temperature 99 F Pulse Rate 90 92 H 90 Respiratory Rate 16 Blood Pressure 141/91 H Pulse Oximetry 95 06/11/18 01:00 06/11/18 02:00 06/11/18 03:00 Temperature Pulse Rate 90 86 85 Respiratory Rate Blood Pressure Pulse Oximetry 06/11/18 04:00 06/11/18 05:00 06/11/18 06:00 Temperature 98.7 F Pulse Rate 78 84 82 Respiratory Rate 16 Blood Pressure 158/102 H Pulse Oximetry 98 06/11/18 07:15 06/11/18 08:00 Temperature 98.5 F Pulse Rate 90 92 H Respiratory Rate 20 Blood Pressure 140/102 H Pulse Oximetry 98 Intake & Output 06/10/18 06/11/18 06/11/18 18:59 06:59 18:59 Intake Total 1600 / 1600 1480 / 1480 Output Total 925 / 925 1370 / 1370 30 / 30 Balance 675 / 675 110 / 110 -30 / -30 Weight 96.5 kg Intake: IV 1000 / 1000 D5W/LR + KCL 20 mEq Inj 1,000 1000 / 1000 ML @ 50 mls/hr IV.CONT .Q20H [facility] Rx#:[id number] Oral 1600 / 1600 480 / 480 Output: Urine 250 / 250 1340 / 1340 Urine Amount (Catheter) 650 / 650 Indwelling Urethral Catheter 650 / 650 Wound Drainage 25 / 25 30 / 30 30 / 30 Right Lower Abdomen 30 / 30 30 / 30 Other: Date of Last Bowel Movement 06/07/18 06/07/18 06/07/18 # Bowel Movements 0 Result Diagrams: 06/10/18 04:02 06/10/18 04:02 Medications: Active Medications Acetaminophen (Tylenol) 650 mg PO Q4H PRN PRN Reason: FEVER > 101 F Last Admin: 06/09/18 20:07 Dose: 650 mg Hydrocodone Bitart/Acetaminophen ([place] 5/325) 2 tab PO Q4H PRN PRN Reason: PAIN SCALE 5 TO 10 Hydrocodone Bitart/Acetaminophen ([place] 5/325) 1 tab PO Q4H PRN PRN Reason: PAIN SCALE 1 TO 4 Last Admin: 06/09/18 03:59 Dose: 1 tab Alvimopan (Entereg) 12 mg PO PROMOTIONS REPRESENTATIVE [facility] Stop: 06/12/18 12:59 Last Admin: 06/09/18 09:01 Dose: 12 mg Alvimopan (Entereg) 12 mg PO BID [facility] Stop: 06/15/18 21:01 Last Admin: 06/11/18 09:31 Dose: 12 mg Amlodipine Besylate (Norvasc) 10 mg PO DAILY [facility] Last Admin: 06/11/18 09:31 Dose: 10 mg Benzocaine/Menthol (Chloraseptic Sore Throat Lozenge) 1 lozenge BUCCAL PRN PRN PRN Reason: SORE THROAT Chlorhexidine Gluconate (Chlorhexidine 2% Cloth) 3 pack TOPICAL PROMOTIONS REPRESENTATIVE [facility] Stop: 06/11/18 12:30 Enalaprilat (Vasotec Inj) 1.25 mg IV.PUSH Q4H PRN PRN Reason: SBP > 160 mmHg Furosemide (Lasix Inj) 20 mg IV.PUSH BID@0900,1800 [facility] Last Admin: 06/11/18 09:31 Dose: 20 mg Cefazolin Sodium 1,000 mg/ (Sodium Chloride) 100 mls @ 200 mls/hr IV.SIG PROMOTIONS REPRESENTATIVE [facility] Stop: 06/11/18 12:59 Metronidazole/Sodium Chloride (Flagyl 500 Mg Inj) 100 mls @ 0 mls/hr IV.SIG PROMOTIONS REPRESENTATIVE [facility] Stop: 06/12/18 12:59 Potassium Chloride (Kcl 20 Meq Premix Inj) 20 meq in 100 mls @ 50 mls/hr IV.SIG UNSCH PRN PRN Reason: for K+ level 3.0-3.5 Potassium Chloride (Kcl 40 Meq Premix Inj) 40 meq in 100 mls @ 25 mls/hr IV.SIG UNSCH PRN PRN Reason: for K= level < 3.0 Potassium Chloride (Kcl 40 Meq Premix Inj) 40 meq in 100 mls @ 25 mls/hr IV.SIG UNSCH PRN PRN Reason: for K= level < 3.0 Potassium Chloride (Kcl 20 Meq Premix Inj) 20 meq in 100 mls @ 50 mls/hr IV.SIG UNSCH PRN PRN Reason: for K+ level 3.0-3.5 Potassium Cl/Dextrose/Lact Ringer's (D5w/Lr + Kcl 20 Meq Inj) 1,000 mls @ 50 mls/hr IV.CONT .Q20H [facility] Last Admin: 06/11/18 05:27 Dose: 50 mls/hr Ketorolac Tromethamine (Toradol Inj) 15 mg IV.PUSH Q6H PRN PRN Reason: BREAKTHROUGH PAIN Stop: 06/11/18 15:45 Last Admin: 06/10/18 23:28 Dose: 15 mg Metoclopramide HCl (Reglan Inj) 10 mg IV.PUSH Q6HR [facility]; Protocol Last Admin: 06/11/18 05:28 Dose: 10 mg Metoprolol Tartrate (Lopressor) 25 mg PO PROMOTIONS REPRESENTATIVE [facility] Stop: 06/11/18 12:30 Pantoprazole Sodium (Protonix Inj) 40 mg IV.PUSH DAILY [facility] Last Admin: 06/11/18 09:30 Dose: 40 mg Povidone Iodine (Betadine 5% Antisepsis Kit) 1 applicatio EACH NARE PROMOTIONS REPRESENTATIVE [facility] Stop: 06/11/18 12:30 Sodium Chloride (Ns Flush) 2 ml IV.FLUSH BID [facility] Last Admin: 06/11/18 09:31 Dose: 2 ml Sodium Chloride (Ns Flush) 2 ml IV.FLUSH BID [facility] Last Admin: 06/11/18 09:32 Dose: Not Given Sodium Chloride (Ns Flush) 2 ml IV.FLUSH PRN PRN PRN Reason: FLUSH AFTER USING IV ACCESS Sodium Chloride (Ns Flush) 2 ml IV.FLUSH PRN PRN PRN Reason: FLUSH AFTER USING IV ACCESS Zolpidem Tartrate (Ambien) 5 mg PO HS PRN PRN Reason: INSOMNIA Objective Remarks: VS-S Abd: soft. Wound clean. Drain removed. Assessment and Plan - Plan Stable POD#3 Doing well. Await path D/C today. F/U 2 weeks. No driving 2 weeks No lifting over 10 pounds 6 weeks.
--- NOTE | 2018-06-29 09:45 | MD ---
cc: Herbie Genao MD, Ryan Sorathia, Abdul J MD DATE OF DISCHARGE: 06/11/2018 ADMITTING DIAGNOSIS: Adenocarcinoma of sigmoid colon. DISCHARGE DIAGNOSIS: Adenocarcinoma of sigmoid colon. OPERATIVE PROCEDURE: Sigmoid colectomy with low anterior resection. HISTORY: This patient originally had a colonoscopy done by Dr. Clemente on 09/12/2017. At that time, there were 2 polyps seen 12-25 mm in size in the sigmoid colon. Both polyps were removed with snare polypectomy and biopsy was returned approximately 10 days later showing an adenocarcinoma. The pathology report stated that it was a 1.5 cm specimen and lymphovascular tumor invasion study was done, as well as endothelial stains and no lymphovascular invasion was found in the area of invasive adenocarcinoma. The patient was referred to General Surgery initially, but wishes second opinion. The patient underwent CT scanning of the abdomen, pelvis, chest on 09/29/2017, which was basically unremarkable except for some pulmonary nodules and therefore he underwent a PET CT scan on 10/03/2017 that was also unremarkable. Approximately 2-1/2 months later on 11/24/2017, the patient was first seen by me for a second opinion. I spoke with Dr. Clemente on the phone and felt that the lesion was definitely in the lower sigmoid colon. At the time of my examination it was 2 months since the lesion was removed, and I decided to repeat his colonoscopy and make sure that I got a good look at the area to see if there was any residual polyp or carcinoma present grossly. The colonoscopy was done on 12/01/2017. At that time, I saw 2 mm scar at 19-20 cm from the anal verge in the lower sigmoid that I tattooed and biopsied showing only focal glandular hyperplasia and no adenomatous glands, dysplasia or malignancy. A CEA level done on 09/23/2017 was normal at 1.6. For this reason, together with the patient, we decided to watch and wait on this lesion, since it appeared as if the lesion had been totally removed and we did not have definitive evidence as to where the lesion was in the lower sigmoid, although we felt it was near that 2 mm scar. I followed the patient and on 03/02/2018, approximately 3 months later, I saw the patient again in the office, did a flexible sigmoidoscopy showing only the tattoo, although the prep was not good. I obtained another CEA on him at that time, which was approximately 6 months after he was originally diagnosed and a CEA on 03/02/2018 was elevated to 15.2. It was repeated about 2 weeks later and was 13.2. Because of this, I saw the patient in the office and once again recommended a complete metastatic workup, as well as a repeat sigmoidoscopy under sedation with prep. A PET CT scan was done on 04/04/2018 showing no definitive uptake in the bowel or the chest or anywhere such as liver or retroperitoneal node changes. Because of this, a sigmoidoscopy examination was done and about 20 cm from the anal verge at the area of the tattoo, there was a small 8 mm pedunculated polypoid lesion that was firm and was biopsied. It showed high-grade dysplasia and underlying carcinoma could not be excluded. Because of this, on 05/04/2018, I talked to the patient once again about having surgery and he consented to the surgery. I recommended a sigmoid colectomy with colorectal anastomosis. LABORATORY DATA: The pathology report on the removed specimen revealed that several peritoneal biopsies were benign mesothelial lined cysts and fibroadipose tissue. The sigmoid colon resection revealed that the tumor residual left in the sigmoid colon was 1 x 0.6 cm. Tumor perforation was not identified. It was moderately differentiated. It did invade through the muscular propria into the pericolonic soft tissue. All margins were uninvolved. There were 13 lymph nodes examined and one showed metastatic disease. HOSPITAL COURSE: The patient was admitted to the hospital on 06/08/2018 and underwent sigmoid colectomy with low anterior resection. On the first postoperative day, he was started on clear liquids, on the second postoperative day was started on full liquids and on the third postoperative day, he was started on a regular diet. The patient was moving his bowels and passing gas and wanted to be discharged on the third postoperative day. His laboratory data was within normal limits. The patient was discharged from the hospital on postoperative day #3 in good condition. He was instructed to call me with any problems. He was instructed to followup with me in the office in 2 weeks. He was instructed not to drive for 2 weeks and not to lift over 10 pounds for 6 weeks. MD MICHAEL Franco/JOSELINE , 09:19 AM , 09:28 AM
== END 2018-06-11 11:00 | disposition home or self-care (01) ==
LOC: HSDI 11:21 → HCIS 18:07
PROVIDERS: ADMIT Colon & Rectal Surgery; ATTEND Colon & Rectal Surgery
DX: C18.7 Malignant neoplasm of sigmoid colon

== ENCOUNTER 2018-06-13 15:48 | Inpatient (IN) ==
--- NOTE | 2018-06-13 16:47 | XR ---
EXAM DATE: 06/13/2018 4:34 PM EDT AGE/SEX: 62 years / Male INDICATIONS: Abdominal pain post surgery on . Nausea and vomiting CLINICAL DATA: This is the patient's initial encounter. Patient reports that signs and symptoms have been present for 1 day and indicates a pain score of 5/10. MEDICAL/SURGICAL HISTORY: None. . Polyps removed. COMPARISON: No prior exams available for comparison. FINDINGS: There is extensive stool throughout the colon mainly in the ascending colon and there are loops of sm all bowel dilated with maximum diameter of 4.4 cm in the left upper quadrant. There is no evidence fo r free intraperitoneal air for technique. CONCLUSION: Significant stool throughout the colon probably causing dilatation of loops of small bowel and a foll ow-up is suggested after appropriate cleansing of the colon. Electronically signed by: Manny Lawrence MD 06/13/2018 4:46 PM EDT
[2018-06-13] MEDS ORDERED: Sod Chloride 0.9% Inj 1,000 ML IV.CONT SCH (18:15)
[2018-06-13] MEDS ORDERED: Diatrizoate Meglum/Diatrizoate Sod Liq 9 ML UDC PO ONE (18:21)
--- NOTE | 2018-06-13 18:21 | ED ---
HPI General Chief Complaint: Abdominal Pain Stated Complaint: Abd Pain Time Seen by Provider: 06/13/18 18:08 History of Present Illness HPI narrative: This is a 8-year-old male who is status post low anterior bowel resection less than 5 days ago, presents here today with complaints of epigastric pain with associated nausea vomiting. Patient called Dr. Berny Genao his colorectal surgeon and informed him of his symptoms. Dr. Genao was going to see him in the office after he was finished in the operating room. When talked to call and called the patient, he was out in the waiting room. A flat plate x-ray was ordered in triage which showed an ileus. Dr. Vera called me and recommended that we work him up and he will admit the patient to his service. The patient denies any fevers, chills. Patient reports the pain as epigastric and a fullness. He states it is relieved with nausea and vomiting. There is no blood. The patient is passing gas. The patient reports normal urine output. There are no other complaints at the time of my examination. MD complaint: abdominal pain Pain Consistency: constant Location: epigastric Severity: moderate Severity scale (1-10): 6 Quality: fullness Radiation: none Relieving factors: nothing Exacerbating factors: eating Associated symptoms: nausea and vomiting Related Data Home Medications Medication Instructions Recorded Confirmed amlodipine 10 mg PO DAILY 06/01/18 06/13/18 hydrocodone-acetaminophen 1 tab PO Q4-6H PRN 06/13/18 06/13/18 Allergies Allergy/AdvReac Type Severity Reaction Status Date / Time lisinopril Allergy Severe Anaphylaxis Verified 06/08/18 12:32 Review of Systems Except as stated in HPI: all other systems reviewed are negative Constitutional Denies chills and Denies fever(s) ENT Reports system reviewed and no additional complaints, except as docu and Denies headache(s) Cardiovascular Denies chest pain and Denies palpitations Respiratory Denies cough and Denies dyspnea Gastrointestinal Reports abdominal pain (Epigastric), Reports bloating, Reports nausea, Reports vomiting, Denies hematemesis and Reports other (Positive passing gas) Genitourinary Denies dysuria, Denies urinary frequency and Denies urinary urgency Musculoskeletal Reports system reviewed and no additional complaints, except as docu and Denies back pain Integumentary/Breasts Reports system reviewed and no additional complaints, except as docu Neurologic Reports system reviewed and no additional complaints, except as docu, Denies confusion and Denies dizziness Psychiatric Reports system reviewed and no additional complaints, except as docu Endocrine Reports system reviewed and no additional complaints, except as docu PMFSH Medical History Medical History Adenomatous colon polyp (Acute) Colon cancer (Acute) Colorectal polyp detected on colonoscopy (Acute) Hypertension (Acute) Surgical History Surgical History History of bowel resection (Acute) Social History Social History Substance History: No History of Abuse Second Hand Smoke Exposure: No Smoking Status: Never smoker Tobacco Type: Cigarettes How Often Do You Have a Drink Containing Alcohol: 2 to 4 times a month Recent Travel in [facility] within the Last 8 Weeks: No Recent Out of Country Travel within the Last 8 Weeks: No Exam Narrative Exam Narrative: GENERAL: Well-developed well-nourished male in no acute respiratory distress. SKIN: Focused skin assessment warm/dry. HEAD: Atraumatic. Normocephalic. EYES: No scleral icterus. No injection or drainage. ENT: No nasal bleeding or discharge. Mucous membranes pink and moist. NECK: Trachea midline. Supple. CARDIOVASCULAR: Regular rate and rhythm. No murmur appreciated. RESPIRATORY: No accessory muscle use. Clear to auscultation. Breath sounds equal bilaterally. GASTROINTESTINAL: Abdomen soft, non-tender, distended. Tympanitic. Pressure discomfort in the epigastrium. On examination patient's wound, there is no drainage. There is no redness under the bandage. MUSCULOSKELETAL: No obvious deformities. No clubbing. No cyanosis. No edema. NEUROLOGICAL: Awake and alert. No obvious cranial nerve deficits. Motor grossly within normal limits. Normal speech. Course Initial Documented Vital Signs Temperature 97.8 F 06/13/18 16:07 Pulse Rate 76 06/13/18 16:07 Respiratory Rate 16 06/13/18 16:07 Blood Pressure 154/80 H 06/13/18 16:07 Pulse Oximetry 100 06/13/18 16:07 Last Documented Vital Signs Temperature 97.8 F 06/13/18 16:07 Pulse Rate 84 06/13/18 16:12 Respiratory Rate 18 06/13/18 16:12 Blood Pressure 136/90 06/13/18 16:12 Pulse Oximetry 97 06/13/18 16:12 Medical Decision Making Differential Diagnosis Differential Diagnosis: Partial bowel obstruction versus ileus versus intra- abdominal abscess versus metabolic derangement Lab Data Result diagrams: 06/13/18 18:54 06/13/18 18:54 Lab Results 06/13/18 Range/Units 18:54 WBC 9.8 (4.0-11.0) th/mm3 RBC 5.62 (4.50-5.90) mil/mm3 Hgb 14.8 (13.0-17.0) gm/dL Hct 45.5 (39.0-51.0) % MCV 81.0 (80.0-100.0) fL MCH 26.3 L (27.0-34.0) pg MCHC 32.5 (32.0-36.0) % RDW 14.8 (11.6-17.2) % Plt Count 305 D (150-450) th/mm3 MPV 7.8 (7.0-11.0) fL Neut % (Auto) 86.6 H (16.0-70.0) % Lymph % (Auto) 7.9 L (9.0-44.0) % [place] % (Auto) 4.6 (0.0-8.0) % Eos % (Auto) 0.6 (0.0-4.0) % Baso % (Auto) 0.3 (0.0-2.0) % Neut # (Auto) 8.5 H (1.8-7.7) th/mm3 Lymph # (Auto) 0.8 L (1.0-4.8) th/mm3 [place] # (Auto) 0.5 (0.0-0.9) th/mm3 Eos # (Auto) 0.1 (0.0-0.4) th/mm3 Baso # (Auto) 0.0 (0.0-0.2) th/mm3 WBC Differential . Differential Comment Auto diff final Imaging Data Radiologist's impression: Abdomen X-Ray 06/13/18 00:00 CONCLUSION: Significant stool throughout the colon probably causing dilatation of loops of small bowel and a follow-up is suggested after appropriate cleansing of the colon. Discharge Plan Discharge Disposition Patient Disposition: 30 Still Patient Discharge Details Diagnosis: Abdominal pain, Nausea and vomiting Physicians Team ED Provider: Beni Torres Primary Care Provider: UNKNOWN, Rxs /Orders / Referrals /Forms Prescriptions: No Action amlodipine 10 mg Tablet 10 mg PO DAILY RF: 0 hydrocodone-acetaminophen 5-325 mg Tablet 1 tab PO Q4-6H PRN (Reason: Pain) RF: 0 Discharge Interventions Interventions: Vital Signs Last Done: 06/13/18 16:12 Status ED Status: With Doctor
[2018-06-13 19:12] LABS: Baso % (Auto) 0.3 % (0.0-2.0); Eos # (Auto) 0.1 th/mm3 (0.0-0.4); Eos % (Auto) 0.6 % (0.0-4.0); Hematocrit 45.5 % (39.0-51.0); Hemoglobin 14.8 gm/dL (13.0-17.0); Lymph # (Auto) 0.8 th/mm3 (1.0-4.8); Lymph % (Auto) 7.9 % (9.0-44.0); Mean Corpuscular HGB Conc 32.5 % (32.0-36.0); Mean Corpuscular Hemoglobin 26.3 pg (27.0-34.0); Mean Platelet Volume 7.8 fL (7.0-11.0); Mono # (Auto) 0.5 th/mm3 (0.0-0.9); Mono % (Auto) 4.6 % (0.0-8.0); Neut # (Auto) 8.5 th/mm3 (1.8-7.7); Neut % (Auto) 86.6 % (16.0-70.0); Platelet Count 305 th/mm3 (150-450); Red Blood Count 5.62 mil/mm3 (4.50-5.90); Red Cell Distribution Width 14.8 % (11.6-17.2); White Blood Count 9.8 th/mm3 (4.0-11.0)
[2018-06-13 19:44] LABS: Alanine Aminotransferase 40 U/L (12-78); Albumin 3.2 g/dL (3.4-5.0); Alkaline Phosphatase 64 U/L (45-117); Anion Gap 12 meq/L (5-15); Aspartate Aminotransferase 25 U/L (15-37); Blood Urea Nitrogen 14 mg/dL (7-18); Carbon Dioxide 24.2 meq/L (21.0-32.0); Chloride 102 meq/L (98-107); Glomerular Filtration Rate 74 mL/min (>89); Glucose,Random 123 mg/dL (74-106); Lipase 97 U/L (73-393); Potassium 4.5 meq/L (3.5-5.1); Sodium 138 meq/L (136-145); Total Protein 8.7 g/dL (6.4-8.2)
--- NOTE | 2018-06-13 21:41 | CT ---
EXAM DATE: 06/13/2018 9:31 PM EDT AGE/SEX: 62 years / Male INDICATIONS: Abdominal pain after colon resection five days ago. CLINICAL DATA: This is the patient's initial encounter. Patient reports that signs and symptoms have been present for 4 - 6 days and indicates a pain score of 2/10. MEDICAL/SURGICAL HISTORY: None. Colon resection. ORAL CONTRAST: Prescribed oral contrast ingested. RADIATION DOSE: 6.91 CTDI (mGy) COMPARISON: [facility], PET/CT TUMOR, 04/04/2018. . TECHNIQUE: Multiple contiguous axial images were obtained through the abdomen and pelvis following b olus infusion of 95 ml Omnipaque 350 (iohexol) nonionic water-soluble contrast as a single exam dos e. Prescribed oral contrast ingested. Using automated exposure control and adjustment of the mA and/ or kV according to patient size, radiation dose was kept as low as reasonably achievable to obtain op timal diagnostic quality images. DICOM format image data is available electronically for review and comparison. FINDINGS: Lower Lungs: Mild bibasilar atelectasis. Liver: The liver has a homogeneous density without space-occupying lesion. There is no dilation of th e biliary tree. No calcified gallstones. Spleen: Homogeneous density without enlargement. Pancreas: Unremarkable without mass or calcification. Kidneys: Normal in size and shape. No evidence of mass or hydronephrosis. Multiple bilateral renal c ysts, the largest posterior midpole on the right side measuring 1.7 cm. Adrenal Glands: Unremarkable. Aorta: The aorta and proximal iliac vessels are grossly unremarkable without aneurysmal dilation. Bowel/Mesentery: Gastric tube tip is coiled within the stomach. Oral contrast does not pass beyond t he second portion of the duodenum. There are multiple dilated loops of small bowel with some air-flui d levels, but no disproportionately dilated loops. Small bowel loops measure up to 4.2 cm in thicknes s. Anastomosis sutures present in the sigmoid. Moderate amount of stool in the right colon. Mild amou nt of intra-abdominal gas in the nondependent abdomen characteristic of recent surgery. Mild amount o f free fluid in the right paracolic gutter; no free fluid in the dependent pelvis.. Abdominal Wall: Subcutaneous gas about Samanta's fascia on both the left and right side characteristi c of recent surgery. There is a mild amount of fluid adjacent to the rectus muscles in the lower abdo men, symmetric in appearance. Retroperitoneum: No evidence of adenopathy in the retrocrural, para-aortic, or deep pelvic regions. Bladder: Contours are smooth. Reproductive Organs: No abnormal masses or calcifications seen. Inguinal: Bilateral inguinal lymph nodes measure 11 mm or less. Bony Structures: Unremarkable. CONCLUSION: 1. Findings characteristic of postoperative ileus with diffusely mildly dilated loops of small bowel and moderate amount of stool right colon. 2. Scattered areas of subcutaneous and abdominal gas, characteristic of recent surgery. Electronically signed by: Alfonso Almanzar MD 06/13/2018 9:39 PM EDT
[2018-06-13] MEDS ORDERED: Morphine Sulfate Inj 2 MG/ML Vial IV.PUSH PRN (21:54)
[2018-06-14 00:19] LABS: Bilirubin,Urine Negative (Negative); Clarity,Urine Hazy (Clear); Color,Urine Yellow (Yellw/Straw); Glucose,Urine (UA) 50 mg/dL (Negative); Leukocyte Esterase,Urine Negative (Negative); Mucus,Urine Few /lpf (Occasional); Nitrite,Urine Negative (Negative); Specific Gravity,Urine 1.026 (1.002-1.035); Squamous Epithelial Cell,Urine <1 /hpf (0-5)
[2018-06-14] MEDS: KCL 20 mEq/D5W/LR Inj 1,000 ML IV.CONT SCH ×4 (01:00→22:00)
--- NOTE | 2018-06-14 09:03 | MH ---
cc: Herbie Genao MD, John T MD DATE OF ADMISSION: 06/13/2018 CHIEF COMPLAINT: Nausea, vomiting. HISTORY OF PRESENT ILLNESS: Lonny is well known to me. I first saw him 11/24/2017. He was referred to me for a second opinion after having a polyp removed from his sigmoid colon in 08/2017. At that time, there were 2 polyps between 12 and 25 mm in size in the sigmoid colon. Both polyps were removed with snare polypectomy by Dr. Clemente. Approximately 10 days later, the polypectomy came back as adenocarcinoma and the report stated that it was a 1.5 cm sized specimen and lymphovascular tumor invasion study was done as well as endothelial stains and no lymphovascular invasion was found in the area of the invasive carcinoma. The patient was referred to general surgery initially, but wishes second opinion. The patient underwent CT scanning of the abdomen and pelvis and the chest on 09/29/2017 which basically was unremarkable, except for some pulmonary nodules. Therefore, he underwent a PET-CT scan on 10/03/2017 that was also unremarkable. I saw the patient on 11/24/2017 and I could not see the polypectomy site. Because of this, after speaking with Dr. Clemente, I decided to repeat the colonoscopy and at colonoscopy at that time on 12/01/2017, I saw a 2 mm scar at about 19-20 cm in the sigmoid colon, which I tattooed and biopsied showing only focal glandular hyperplasia and no adenomatous glands, dysplasia or malignancy. CEA level done on 09/23/2017 was normal at 1.6. For this reason, we decided together to watch and wait on this lesion and follow him as we had no evidence of exactly where the lesion definitely was, although it was felt to be in the lower sigmoid where I saw the scar. I followed the patient and on 03/02/2018, I saw the patient again in the office, did a flexible sigmoidoscopy showing only the tattoo, although the prep was not good at that time. I obtained another CEA on him at that time. This was approximately 6 months after his original removal and the CEA on 03/02/2018 was elevated to 15.2. It was repeated about 2 weeks later and was down to 13.2. Because of this, I saw the patient in the office once again, recommended a complete metastatic workup, as well as a repeat sigmoidoscopy under sedation with a prep. The PET-CT scan was done on 04/04/2018 showing no definite uptake in the bowel or the chest or anywhere such as the liver or retroperitoneal node chain. Because of this, sigmoidoscopy examination was done and at about 20 cm from the anal verge at the area of the tattoo, there was a small 8 mm pedunculated polypoid lesion that was firm and it was biopsied. It showed high-grade dysplasia and underlying carcinoma could not be excluded. Because of this, on 05/04/2018, I talked with the patient once again about having surgery and he consented to the surgery. At surgery, exploration of the abdominal cavity revealed that the liver was palpably normal, as was the remainder of the abdominal cavity. There were several peritoneal biopsies done and these all came back as benign eventually. 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 The primary lesion was 1 cm x 0.6 cm in size in the bowel wall. It was a T3N1 lesion. The patient did well in the hospital and was discharged from the hospital on the third postoperative day eating a regular diet and was ambulating well. He was taking no pain medicine, but by the fifth postoperative day, he was becoming nauseated and bloated and was passing flatus but no stool. He talked to my office staff and they urged him to not go to the emergency department and to be seen by me in the office, but by the time I finished in the operating room, he was already at the emergency room. I spoke to the emergency room physician, Dr. Beni Torres last night and the patient was admitted to the hospital with a nasogastric tube and IV fluid. The nasogastric tube initially drained [address] scanning was done with oral contrast and the oral contrast had not traversed through the small of the colon, but the CT scan was basically normal for a postoperative patient showing some air in the subcutaneous tissue at the site of the incision, as well as some small amount of intraperitoneal air. There was no evidence of any leak of the anastomosis. The patient has been afebrile. On the morning after admission, he reports that he has had several bowel motions. He states that he has no more nausea or vomiting with the nasogastric tube present. He is not having much in the way of pain. PAST MEDICAL HISTORY, FAMILY HISTORY, SOCIAL HISTORY, REVIEW OF SYSTEMS: Otherwise, negative except for hypertension. PHYSICAL EXAMINATION: GENERAL: A well-developed, well-nourished male with a nasogastric tube present. SKIN: Warm and dry. HEENT: Extraocular muscles intact. NECK: Supple. CHEST: Clear. HEART: S1, S2 is heard. No murmurs or gallops. ABDOMEN: Soft, possibly mildly distended, although he is a strong muscular patient. He does have some tympany in the upper abdomen. RECTAL: Exam was not done. EXTREMITIES: Range of motion within normal limits. NEUROLOGIC: Grossly normal. IMPRESSION: Postoperative ileus, probably mostly gastric although the small bowel was somewhat dilated as well. PLAN: I will obtain a repeat supine and erect abdominal x-ray this morning and then probably remove his nasogastric tube if the drainage remains small and then slowly readvance his diet. I also will consult Dr. Krishan Martinez of the oncology department regarding postoperative chemotherapy in the next 4-6 weeks because of his lymph node metastasis. I have explained all this to the patient and he agrees. MD MICHAEL Franco/ANTONIA , 08:27 AM , 09:03 AM
[2018-06-14 09:04] LABS: Baso % (Auto) 0.5 % (0.0-2.0); Eos # (Auto) 0.1 th/mm3 (0.0-0.4); Eos % (Auto) 1.6 % (0.0-4.0); Hemoglobin 12.7 gm/dL (13.0-17.0); Lymph # (Auto) 1.1 th/mm3 (1.0-4.8); Lymph % (Auto) 15.1 % (9.0-44.0); Mean Corpuscular HGB Conc 32.7 % (32.0-36.0); Mean Corpuscular Volume 79.6 fL (80.0-100.0); Mean Platelet Volume 7.7 fL (7.0-11.0); Mono # (Auto) 0.9 th/mm3 (0.0-0.9); Mono % (Auto) 12.2 % (0.0-8.0); Neut % (Auto) 70.6 % (16.0-70.0); Platelet Count 264 th/mm3 (150-450); Red Cell Distribution Width 14.4 % (11.6-17.2)
[2018-06-14 09:38] LABS: Calcium 8.5 mg/dL (8.5-10.1); Carbon Dioxide 24.6 meq/L (21.0-32.0); Potassium 4.1 meq/L (3.5-5.1)
--- NOTE | 2018-06-14 10:08 | XR ---
EXAM DATE: 06/14/2018 9:53 AM EDT AGE/SEX: 62 years / Male INDICATIONS: Abdomen Distention. CLINICAL DATA: This is the patient's subsequent encounter. Patient reports that signs and symptoms h ave been present for 2 days and indicates a pain score of 0/10. MEDICAL/SURGICAL HISTORY: None. Colon resection. [place] [facility] [place]. . FINDINGS: Supine and upright views of the abdomen were performed. This is compared to the prior examination. Th ere is now an NG tube which appears to be coiled in the stomach. There continues to be multiple moder ately distended loops of small bowel with air-fluid levels. This pattern is not significant change co mpared to the prior study. The colon appears to be nondilated. There is some contrast seen in the uri nary bladder. The bony structures are stable. No evidence of free air. CONCLUSION: 1. There is now an NG tube coiled in the stomach. 2. There continues to be multiple moderately distended loops of small bowel with air-fluid levels, w ithout significant change compared to the prior study.. This can be seen with either ileus versus a d istal small bowel obstruction. Electronically signed by: Arvin Munroe MD 06/14/2018 10:06 AM EDT
[2018-06-14] MEDS: amLODIPine 10 MG Tablet PO SCH (12:12)
--- NOTE | 2018-06-15 00:17 | MB ---
cc: Carlos A Martinez MD DATE: 06/14/2018 REASON FOR CONSULTATION: Consult requested by Dr. Genao for evaluation of recently diagnosed colon cancer. HISTORY OF PRESENT ILLNESS: Mauricio is a pleasant 62-year-old male who has a history of pernicious anemia and has been on B12 shots. He was diagnosed with colon cancer in the sigmoid area when he had a screening colonoscopy on 09/12/2017. The sigmoid mass was reported as polyp and it was removed. The pathology report showed well differentiated adenocarcinoma. The patient was evaluated by Dr. Coats, who has recommended surgery, however, the preop blood test shows severe macrocytic anemia. He was referred to me for further evaluation. The patient's B12 was very low at 31 and his hemoglobin was 10.2. He has a history of pernicious anemia. Surgery was deferred due to the severe anemia. He had a CAT scan of the chest, abdomen and pelvis, which showed bilateral subcentimeter pulmonary nodules consistent with benign findings. The patient was treated with daily B12 shots and he had a significant response. He was evaluated by colorectal surgeon, Dr. Genao. A repeat colonoscopy did not show any residual disease and he was kept on observation. The patient recently underwent a reevaluation sigmoidoscopy, which showed suspicious lesion at the original polypectomy site. The patient underwent surgery and the pathology report showed T3 N1 M0 stage III colon cancer. The patient was discharged to home and now he has been readmitted with generalized weakness and bowel obstruction. The patient is conservatively managed. I have been asked to see the patient for further evaluation. The patient states that he is feeling much better and he thinks that he is ready to go home tomorrow. He denies any nausea or vomiting. His appetite is okay. The rest of the review of systems is negative. PAST MEDICAL HISTORY: Oriental orthodox, pernicious anemia, hypertension. PAST SURGICAL HISTORY: Colonoscopy. ALLERGIES: LISINOPRIL. MEDICATIONS: Amlodipine besylate. FAMILY HISTORY: Both parents . He has 2 brothers, 1 sister, 2 daughters and 1 son, all are alive and well, except one of the daughters from an enlarged heart. SOCIAL HISTORY: He is a sheet ironworker. He never smoked cigarettes and he used to drink alcohol in the past. PHYSICAL EXAMINATION: GENERAL: He is a well-developed, well-nourished male in no apparent distress. VITAL SIGNS: Temperature 98, heart rate 87, blood pressure 141/93, O2 saturation 98%. HEAD, EYES, EARS, NOSE, AND THROAT: Pupils equal, round, reactive to light and accommodation, extraocular movements intact. Anicteric. No oral lesions noted. No thrush noted. NECK: Supple. No JVD. No masses noted. LUNGS: Clear. No wheezing, rhonchi, or rales. HEART: Regular rate and rhythm. No murmur heard. ABDOMEN: Distended, decrease bowel sounds. EXTREMITIES: No pedal edema. No cyanosis, no clubbing. NEUROLOGIC: Awake, alert, oriented x 3. Sensory and motor seem to be intact. SKIN: No bruises or petechiae noted. LYMPH NODES: No cervical, supraclavicular, or axillary lymphadenopathy noted. BACK: There is no spinal tenderness noted. ASSESSMENT: 1. Sigmoid colon cancer, status post surgery, T3 N1 M0. 2. Pernicious anemia, on B12 shots. PLAN: I have discussed with the patient regarding the treatment for stage III colon cancer. I do not have the pathology report available, but according to Dr. Genao's note, he has a T3 N1 M0 sigmoid colon cancer. My recommendation is for adjuvant FOLFOX chemotherapy. At this time, the patient needs to recover from the surgery. We will wait for 4-6 weeks before we initiate the adjuvant chemotherapy. Risks, benefits and alternatives of the FOLFOX chemotherapy were explained to the patient. He agreed and wants to proceed with that. We will wait 4-6 weeks for the wound to heal before we start the chemotherapy. The patient will need Infusaport and we will arrange this as an outpatient. The case has been discussed with earlier. Thank you for asking my opinion. MD REINA Pozo/SHANEL , 11:33 PM , 12:15 AM JOSELIN
[2018-06-15] MEDS: KCL 20 mEq/D5W/LR Inj 1,000 ML IV.CONT SCH ×3 (04:28→15:01)
[2018-06-15] MEDS: amLODIPine 10 MG Tablet PO SCH (08:22)
--- NOTE | 2018-06-15 10:05 | XR ---
EXAM DATE: 06/15/2018 9:34 AM EDT AGE/SEX: 62 years / Male INDICATIONS: Distention CLINICAL DATA: This is the patient's subsequent encounter. Patient reports that signs and symptoms h ave been present for 1 week and indicates a pain score of 0/10. MEDICAL/SURGICAL HISTORY: None. Colon resection. COMPARISON: [facility] [place] 2V FLAT & UPRIGHT, 06/14/2018. . FINDINGS: There has been interval removal of the nasogastric catheter. Redemonstration of multiple loops of mod erately distended small bowel with air-fluid levels noted on the upright exam. Air is seen throughout the colon which appears nondilated. There is no significant free air or pneumomediastinum. Remainder of the exam is unchanged. CONCLUSION: 1. Interval removal of nasogastric catheter. 2. Stable partial distal small bowel obstruction versus moderate adynamic ileus pattern. Electronically signed by: Dmitry Benites MD 06/15/2018 10:03 AM EDT
--- NOTE | 2018-06-15 17:08 | P.PNCS ---
Subjective Interval history: No N or V. Stooling soft BMs. Wants to go home. Objective Result Diagrams: 06/14/18 07:15 06/14/18 07:15 Objective Remarks: VS-S Abd: softer,no tympany,wound clean Assessment and Plan - Plan Stable- Resolved post op Ileus. Plan D/C today. F/U in 2 weeks.
== END 2018-06-15 18:22 | disposition home or self-care (01) ==
LOC: NEPC 15:48 → NEDA 22:04 → N07 06-14 01:35
PROVIDERS: ADMIT Colon & Rectal Surgery; ATTEND Colon & Rectal Surgery